=== PATIENT | male | born 1975 | race Caucasian/White ===

== ENCOUNTER → 2016-08-06 | Outpatient (CLI) | payer OTHER ==
--- NOTE | 2016-08-06 13:47 | REP ---
RIGHT FEMUR: AP and lateral views of the right femur are performed. No acute fracture, dislocation, or intrinsic osseous pathology is seen. Small oval calcification along the superolateral acetabulum probably represents an unfused ossification center or old avulsion fracture. IMPRESSION: No acute fracture or dislocation. Signed by Raul Yo MD 08/06/2016 05:26 P
== END ==
LOC: M WUC 12:56
PROVIDERS: ATTEND Physician Assistant
DX: S70.11XA Contusion of right thigh, initial encounter (principal); X58.XXXA Exposure to other specified factors, initial encounter; Y92.89 Other specified places as the place of occurrence of the external cause; Y93.89 Activity, other specified; Y99.8 Other external cause status

== ENCOUNTER 2017-12-21 10:37 | Emergency (ER) | payer OTHER, BC ==
[2017-12-21] MEDS: DERMABOND TOPICAL SKIN ADHESIVE TOP (11:00)
[2017-12-21] MEDS: ADACEL/BOOSTRIX VACCINE (DIPHTH/PERTUSS/ACELL/TETANUS)0.5ML SYR (90715) IM (12:29)
== END 2017-12-21 12:54 | disposition home or self-care (01) ==
LOC: M ED 10:37
DX: S01.81XA Laceration without foreign body of other part of head, initial encounter (principal); T14.8XXA Other injury of unspecified body region, initial encounter; W17.89XA Other fall from one level to another, initial encounter; Y92.89 Other specified places as the place of occurrence of the external cause; J30.2 Other seasonal allergic rhinitis; Z79.899 Other long term (current) drug therapy
CPT/HCPCS: 90715